=== PATIENT | female | born 1980 | race American Indian/Alaskan Native ===

== ENCOUNTER → 2023-04-01 10:41 | Outpatient (REF) | payer OTHER, SELFPAY ==
[2023-04-01 16:20] LABS: Mumps Virus IgG Positive; Rubeola (Measles) IgG Positive
[2023-04-01 17:58] LABS: Varicella Zoster IgG (VZV) Positive
[2023-04-02 19:35] LABS: Rubella Positive
[2023-04-02 19:43] LABS: Hepatitis B Surface Antibody Negative
[2023-04-04 00:58] LABS: Quantiferon Mitogen minus NIL 9.83 IU/mL; Quantiferon NIL 0.02 IU/mL; Quantiferon Plus TB1 minus NIL 0.01 IU/mL (0.00-0.34); Quantiferon Plus TB2 minus NIL 0.01 IU/mL (0.00-0.34); Quantiferon TB Gold Plus Negative (Negative)
== END ==
LOC: OHS 10:41
PROVIDERS: ATTENDING PHYSICIAN Nurse Practitioner Family
DX: Z23 Encounter for immunization (principal)
CPT/HCPCS: 36415; 86480; 86706; 86735; 86762; 86765; 86787